=== PATIENT | female | born 1990 | race Caucasian/White ===

== ENCOUNTER 2023-12-29 14:58 | Emergency (ER) | payer OTHER, SELFPAY ==
--- NOTE | 2023-12-29 15:37 | ED.URI ---
HPI - URI/Sore Throat General Chief Complaint: Upper Respiratory Infection Stated Complaint: sob,cough,congestion Time Seen by Provider: 12/29/23 15:43 Source: patient, RN notes reviewed and old records reviewed Mode of arrival: ambulatory Limitations: no limitations History of Present Illness HPI Narrative: 33-year-old female presents to the [facility] with complaints of cough, congestion, intermittent shortness of breath. Patient reports flu-like symptoms about a week ago, states she does have a lingering cough and intermittent shortness of breath. Denies any chest pain, fevers currently. States the 1st 2 days of symptoms she had low-grade fevers Onset (ago): day(s) (1-2) Treatments prior to arrival: cold medicine Related Data Allergies Allergy/AdvReac Type Severity Reaction Status Date / Time meperidine Allergy Unknown Verified 09/13/14 13:48 MEPERIDINE HCL Allergy Unknown MUSCLE Uncoded 12/29/17 18:47 SPASMS AND BRADYCARDIA Review of Systems Review of Systems: All systems reviewed & are unremarkable except as noted in HPI and below Constitutional: Constitutional: Reports no additional constitutional complaints Eyes: Eyes: Reports no additional eye complaints ENT: Reports system reviewed and no additional complaints, except as documented Cardiovascular: Cardiovascular: Reports no additional cardiovascular complaints, Denies chest pain and Denies dyspnea Respiratory: Respiratory: Reports as per HPI, Reports chest congestion, Reports cough and Reports dyspnea Gastrointestinal: Gastrointestinal: Reports no additional gastrointestinal complaints, Denies abdominal pain, Denies nausea and Denies vomiting Musculoskeletal: Musculoskeletal: Reports no additional musculoskeletal complaints Integumentary/Breasts: Skin/Breast: Reports system reviewed and no additional complaints, except as docu Neurologic: Reports system reviewed and no additional complaints, except as documented Psychiatric: Psychiatric: Reports no additional psychiatric complaints Allergic/Immunologic: Allergic/Immunologic: Reports no additional allergic/immunologic complaints [facility] Family History Family History Father Hypertension Family history of chronic obstructive pulmonary disease Grandparent Family history of malignant neoplasm of breast Family history of coronary artery disease Diabetes mellitus Family history of obesity Depression Cerebrovascular accident Family history of chronic obstructive pulmonary disease Family history of neuropathy Family history of congestive heart failure Mother Family history of chronic obstructive pulmonary disease Social History Social History Smoking status: Never smoker Alcohol intake: current Comments At the time of my signature, I reviewed and agree with the nursing past medical, surgical, social, and family history. There is no relevant family history pertinent to the patient complaint. Exam Const: General: cooperative, healthy appearing, comfortable, no acute distress, well developed, alert and well nourished Nutritional Appearance: well nourished and obese Orientation/consciousness: patient oriented x3 Limitations: no limitations HENMT: Head: normal to inspection Ears: hearing grossly normal bilaterally, external ears normal, TM's normal bilaterally, EAC's normal, mastoids normal and no periauricular adenopathy Face/Nose/Sinus: Normal external nose present, Normal nares present, Normal nasal mucous membranes and turbinates present, normal facial exam and face symmetric Face and sinus: normal facial exam and face symmetric Mouth: Yes Normal oral and palatal mucosa present, Yes lip normal and Yes moist mucous membranes Throat: posterior oropharynx normal, tonsils normal, uvula midline and postnasal drainage Eyes: General: appearance normal, both eyes and all related s
[2023-12-29 15:43] VITALS: BP 139/91; PULSE 88; RESP 20; TEMP 36.6; O2SAT 99
== END 2023-12-29 15:58 | disposition home or self-care (01) ==
PROVIDERS: Emergency Provider Nurse Practitioner; PCP Family Medicine
DX: J40 Bronchitis, not specified as acute or chronic (principal)
CPT/HCPCS: 99213; G0463

== ENCOUNTER 2024-02-22 08:21 | Emergency (ER) | payer OTHER, SELFPAY ==
--- NOTE | 2024-02-22 08:27 | ED.EYEPROB ---
HPI - Eye Problem General Chief complaint: Eye Problems Stated complaint: Rt Eye Irritation Time Seen by Provider: 02/22/24 08:27 Source: patient Mode of arrival: ambulatory Limitations: no limitations History of Present Illness HPI Narrative: Gavi is a 33-year-old female patient presenting to the clinic today with complaints of right eye discomfort after a tree branch hit her in her right eye. She reports there is pain, photosensitivity, and the eyes watering. She is unable to keep the eye open. Related Data Home Medications Medication Instructions Recorded Confirmed venlafaxine 75 mg capsule,extended 75 mg PO DAILY 02/22/24 02/22/24 release 24 hr Allergies Allergy/AdvReac Type Severity Reaction Status Date / Time MEPERIDINE HCL AdvReac Intermediate MUSCLE Uncoded 02/22/24 08:23 SPASMS AND BRADYCARDIA Review of Systems Review of Systems: Pertinent positives per HPI. Patient denies any fever, chills, rash, headache, visual changes, dizziness, cough, shortness of breath, chest pain, palpitations, nausea, vomiting, diarrhea, constipation, abdominal pain, or any urinary issues. PMFSH Family History Family History Father Hypertension Family history of chronic obstructive pulmonary disease Grandparent Family history of malignant neoplasm of breast Family history of coronary artery disease Diabetes mellitus Family history of obesity Depression Cerebrovascular accident Family history of chronic obstructive pulmonary disease Family history of neuropathy Family history of congestive heart failure Mother Family history of chronic obstructive pulmonary disease Social History Social History Smoking status: Never smoker Alcohol intake: current Comments At the time of my signature, I reviewed and agree with the nursing past medical, surgical, social, and family history. There is no relevant family history pertinent to the patient complaint. Exam Narrative: General: Well-developed, well nourished, in no apparent distress Head: Normocephalic, atraumatic Eyes: Pupils equally round and reactive to light bilaterally, EOM intact, left sclera and conjunctive clear, right sclera and conjunctiva injected with clear watery discharge, lids normal, Wood's lamp exam was performed and shows a corneal abrasion to the right a over the iris/visual field Ears: TMs intact and clear, ear canals clear, no drainage, grossly hearing normal. Nose: Nares patent, no discharge, no inflammation, no sinus tenderness. Mouth: Oral pharynx without lesions or masses, good dentition, MMM. Neck: Supple, trachea midline, no enlargement of anterior or posterior cervical nodes, no thyroid masses or goiter palpable. Cardio: Regular rate and rhythm, s1 and s2 normal, no murmur appreciated. Resp: Clear to auscultation bilaterally, no rhonchi, rales, wheezing or rubs Course Course Emergency Course: Portions of this record may have been created with voice recognition software. Level of Care: Express Care Visit Vital Signs Vital signs: Vital Signs Temperature 36.2 C L 02/22/24 08:29 Pulse Rate 83 02/22/24 08:29 Respiratory Rate 16 02/22/24 08:29 Blood Pressure 122/87 02/22/24 08:29 Pulse Oximetry 98 02/22/24 08:29 Oxygen Delivery Room Air 02/22/24 08:29 Temperature 36.2 C L 02/22/24 08:29 Pulse Rate 83 02/22/24 08:29 Respiratory Rate 16 02/22/24 08:29 Blood Pressure 122/87 02/22/24 08:29 Pulse Oximetry 98 02/22/24 08:29 Oxygen Delivery Room Air 02/22/24 08:29 Vital signs reviewed Procedures Other Procedure Procedure 1: Other Procedure: One drop of tetracaine topical anesthetic was instilled with good anesthesia. Fluorescein stain of the right eye was performed with corneal abrasion noted over the iris/visual field of the right eye,
[2024-02-22 08:29] VITALS: BP 122/87; PULSE 83; RESP 16; TEMP 36.2; O2SAT 98
== END 2024-02-22 08:43 | disposition home or self-care (01) ==
PROVIDERS: Emergency Provider Nurse Practitioner Family; PCP Family Medicine
DX: S05.01XA Injury of conjunctiva and corneal abrasion without foreign body, right eye, initial encounter (principal); W22.8XXA Striking against or struck by other objects, initial encounter
CPT/HCPCS: 99213; A9270; G0463